=== PATIENT | male | born 1965 | race Caucasian/White ===

== ENCOUNTER 2020-07-21 06:55 | Outpatient (CLI) | payer BC | END 2020-07-21 23:59 | disposition home or self-care (01) | LOC: CVU 06:55 | PROVIDERS: ATTEND Internal Medicine Clinical Cardiac Electrophysiology | DX: I34.0 Nonrheumatic mitral (valve) insufficiency (principal); I77.4 Celiac artery compression syndrome; I71.9 Aortic aneurysm of unspecified site, without rupture; E78.5 Hyperlipidemia, unspecified; Z82.49 Family history of ischemic heart disease and other diseases of the circulatory system | CPT/HCPCS: 93306; 93356; 93978 ==